=== PATIENT | female | born 1980 | race Caucasian/White ===

== ENCOUNTER 2017-01-08 15:56 | Emergency (ER) | payer OTHER ==
[2017-01-08 16:05] VITALS: BP 144/86
--- NOTE | 2017-01-08 16:12 | UC ---
Dizzy HPI HPI Summary: 36 YEAR OLD FEMALE WITH GRAVES DISEASE PRESENTS WITH COMPLAINS OF NAUSEA, DIZZINESS, AND TACHYCARDIA. I WILL SEND HER TO THE ER. - History Of Current Complaint Chief Complaint: UCGeneralIllness Stated Complaint: DIZZINESS,WEAKNESS Time Seen by Provider: 01/08/17 16:08 Hx Last Menstrual Period: NOW - Allergies/Home Medications Allergies/Adverse Reactions: Allergies Allergy/AdvReac Type Severity Reaction Status Date / Time Sulfa Antibiotics Allergy Severe FLUSHED, Verified 01/08/17 16:05 NAUSEA, SHAKING Home Medications: Home Medications ALPRAZolam TAB* [Xanax TAB*] 0.5 mg PO PRN 01/08/17 [History] FLUoxetine CAP* [PROzac CAP*] 40 mg PO DAILY 01/08/17 [History Confirmed ] Levothyroxine TAB* [Synthroid TAB*] 200 mcg PO DAILY 01/08/17 [History Confirmed 01/08/17] Nortriptyline CAP* [Pamelor CAP*] 10 mg PO TID 01/08/17 [History Confirmed 01/08] Oxybutynin TAB* [Ditropan TAB*] PRN 01/08/17 [History Confirmed 01/08/17] PMH/Surg Hx/FS Hx/Imm Hx - Surgical History Surgical History: Yes Surgery Procedure, Year, and Place: CHOLECYSTECTOMY - Social History Alcohol Use: None Substance Use Type: None Smoking Status (MU): Current Every Day Smoker Type: Cigarettes Amount Used/How Often: 1/2 PPD Review of Systems Constitutional: Negative Skin: Negative Eyes: Negative ENT: Negative Respiratory: Negative Cardiovascular: Negative Gastrointestinal: Negative Genitourinary: Negative Motor: Negative Neurovascular: Negative Musculoskeletal: Negative Neurological: Headache, Weakness, Other - DIZZINESS Psychological: Negative All Other Systems Reviewed And Are Negative: Yes Physical Exam Triage Information Reviewed: Yes Vital Signs: Initial Vital Signs Temp 37.3 C 01/08/17 16:01 Pulse 106 01/08/17 16:01 Resp 16 01/08/17 16:01 BP 144/86 01/08/17 16:01 Pulse Ox 100 01/08/17 16:01 Eye Exam: Normal ENT Exam: Normal Dental Exam: Normal Neck exam: Normal Neck: Positive: 1 Respiratory Exam: Normal Cardiovascular Exam: Normal Abdominal Exam: Normal Musculoskeletal Exam: Normal Psychological Exam: Normal Skin Exam: Normal Dizzy Course/Dx - Differential Dx/Diagnosis Provider Diagnoses: dizziness. fever. chills. fatigue Discharge - Discharge Plan Condition: Stable Disposition: AGAINST MEDICAL ADVICE Patient Education Materials: Lightheadedness (ED), Dizziness (ED), Graves Disease (ED), Tachycardia (ED) Referrals: No Primary Care Phys,NOPCP [Primary Care Provider] -
== END 2017-01-08 16:15 | disposition left against medical advice (07) ==
LOC: UCEAST 15:56
DX: R42 Dizziness and giddiness (principal); R50.9 Fever, unspecified; R53.83 Other fatigue; E05.00 Thyrotoxicosis with diffuse goiter without thyrotoxic crisis or storm; Z72.0 Tobacco use
CPT/HCPCS: 99201; G0463

== ENCOUNTER 2017-01-08 19:12 | Emergency (ER) | payer OTHER ==
[2017-01-08 22:22] LABS: Hematocrit 43 % (35-47); Hemoglobin 14.4 g/dl (12.0-16.0); Mean Corpuscular HGB Conc 33 g/dl (31-36); Mean Corpuscular Hemoglobin 30 pg (27-31); Mean Corpuscular Volume 90 fL (80-97); Mean Platelet Volume 8 um3 (7.4-10.4); Red Blood Count 4.83 10^6/ul (4.0-5.4); Red Cell Distribution Width 14 % (10.5-15); White Blood Count 14.1 10^3/ul (3.5-10.8)
[2017-01-08 22:38] LABS: BUN/Creatinine Ratio 11.1 (8-20); Calcium 9.4 mg/dL (8.6-10.3); EGFR African American 104.1 (>60); EGFR Non-African American 80.9 (>60); Globulin 2.9 g/dL (2-4); Total Bilirubin 0.5 mg/dL (0.2-1.0); Total Protein 6.9 g/dL (6.4-8.9)
[2017-01-08 22:49] LABS: TSH (Thyroid Stimulating Horm) 10.54 mcIU/mL (0.34-5.60)
--- NOTE | 2017-01-08 23:02 | ED ---
I, Oh,Jackie, scribed for Juan Roberts MD on 01/08/17 at 2113 . Dizziness - HPI Summary HPI Summary: This 36 y/o female presents to ED for lightheaded dizziness since 2-3 days ago. Positive general weakness and subjective fever. Negative n/v. APAP and advil did not make symptoms better. PMHx includes Graves disease, anxiety, and depression. Pt also reports that she is "pretty diabetic" but has not been prescribed any insulin or pills to control it. Pt does not have primary care established. Pt attempted to make appointment with [facility] today before coming to ED. Pt does have pending appointment at [facility] tomorrow morning. - History Of Current Complaint Chief Complaint: EDDizziness Stated Complaint: DIZZINESS,WEAKNESS-SENT FROM [facility] Time Seen by Provider: 01/08/17 21:05 Hx Obtained From: Patient Timing: Constant Character: Lightheaded Aggravating Factor(s): Nothing Alleviating Factor(s): Nothing Associated Signs And Symptoms: Positive: Fever - subjective fever - Allergies/Home Medications Allergies/Adverse Reactions: Allergies Allergy/AdvReac Type Severity Reaction Status Date / Time Sulfa Antibiotics Allergy Severe FLUSHED, Verified 01/08/17 16:05 NAUSEA, SHAKING PMH/Surg Hx/FS Hx/Imm Hx Endocrine/Hematology History: Reports: Hx Thyroid Disease - GRAVE'S DISEASE - Surgical History Surgery Procedure, Year, and Place: CHOLECYSTECTOMY Infectious Disease History: No Infectious Disease History: Denies: Traveled Outside the [place] in Last 30 Days - Family History Known Family History: Positive: Diabetes - to mother - Social History Alcohol Use: None Substance Use Type: Reports: None Smoking Status (MU): Current Every Day Smoker Type: Cigarettes Amount Used/How Often: 1/2 PPD Review of Systems Positive: Fever - subjective fever. Afebrile at triage Neurological: Other - Positive lightheaded dizziness Positive: Weakness - general All Other Systems Reviewed And Are Negative: Yes Physical Exam Triage Information Reviewed: Yes Vital Signs On Initial Exam: Initial Vitals Temp Pulse Resp BP Pulse Ox 98.8 F 118 16 135/92 97 01/08/17 19:16 01/08/17 19:16 01/08/17 19:16 01/08/17 19:16 01/08/17 19:16 Vital Signs Reviewed: Yes Appearance: Positive: Well-Appearing, No Pain Distress Skin: Positive: Warm Head/Face: Positive: Normal Head/Face Inspection Eyes: Positive: EOMI, [place] ENT: Positive: Hearing grossly normal Neck: Positive: Supple, Nontender Respiratory/Lung Sounds: Positive: Clear to Auscultation, Breath Sounds Present Cardiovascular: Positive: RRR Abdomen Description: Positive: Nontender, Soft Bowel Sounds: Positive: Present Musculoskeletal: Positive: Strength/ROM Intact Neurological: Positive: Alert, Oriented to Person Place, Time Psychiatric: Positive: Affect/Mood Appropriate Diagnostics - Vital Signs Vital Signs Temp Pulse Resp BP Pulse Ox 01/08/17 19:16 98.8 F 118 16 135/92 97 - Laboratory Lab Results: Lab Results 01/08/17 01/08/17 Range/Units 21:30 21:30 WBC 14.1 H (3.5-10.8) 10^3/ul RBC 4.83 (4.0-5.4) 10^6/ul Hgb 14.4 (12.0-16.0) g/dl Hct 43 (35-47) % MCV 90 (80-97) fL MCH 30 (27-31) pg MCHC 33 (31-36) g/dl RDW 14 (10.5-15) % Plt Count 316 (150-450) 10^3/ul MPV 8 (7.4-10.4) um3 Neut % (Auto) 61.4 (38-83) % Lymph % (Auto) 29.1 (25-47) % [place] % (Auto) 7.8 (1-9) % Eos % (Auto) 1.1 (0-6) % Baso % (Auto) 0.6 (0-2) % Absolute Neuts (auto) 8.7 H (1.5-7.7) 10^3/ul Absolute Lymphs (auto) 4.1 (1.0-4.8) 10^3/ul Absolute Monos (auto) 1.1 H (0-0.8) 10^3/ul Absolute Eos (auto) 0.2 (0-0.6) 10^3/ul Absolute Basos (auto) 0.1 (0-0.2) 10^3/ul Absolute Nucleated RBC 0.01 10^3/ul Nucleated RBC % 0.1 Sodium 136 (133-145) mmol/L Potassium 4.0 (3.5-5.0) mmol/L Chloride 102 (101-111) mmol/L Carbon Dioxide 27 (22-32) mmol/L Anion Gap 7 (2-11) mmol/L BUN 9 (6-24) mg/dL Creatinine 0.81 (0.51-0.95) mg/dL Est GFR ( Amer) 104.1 (>60) Est GFR (Non-Af Amer) 80.9 (>60) BUN/Creatinine Ratio 11.1 (8-20) Glucose 88 (70-100) mg/dL Calcium 9.4 (8.6-10.3) mg/dL Total Bilirubin 0.50 (0.2-1.0) mg/dL AST 13 (13-39) U/L ALT 14 (7-52) U/L Alkaline Phosphatase 61 (34-104) U/L Total Protein 6.9 (6.4-8.9) g/dL Albumin 4.0 (3.2-5.2) g/dL Globulin 2.9 (2-4) g/dL Albumin/Globulin Ratio 1.4 (1-3) TSH 10.54 H (0.34-5.60) mcIU/mL Result Diagrams: 01/08/17 21:30 01/08/17 21:30 Lab Statement: Any lab studies that have been ordered have been reviewed, and results considered in the medical decision making process. Re-Evaluation - Re-Evaluation First Eval Comment: results d/w pt Dizzy Course/Dx - Diagnoses Provider Diagnoses: Dizziness Discharge - Discharge Plan Condition: Stable Disposition: HOME Patient Education Materials: Dizziness (ED) Forms: *Work Release Referrals: [facility]FERRAL [Outside] - 2 Days The documentation as recorded by the Oracio jacobson Soohyun accurately reflects the service I personally performed and the decisions made by , Juan Roberts MD.
[2017-01-08 23:20] VITALS: BP 111/80
== END 2017-01-08 23:26 | disposition home or self-care (01) ==
LOC: ED 19:12
DX: R42 Dizziness and giddiness (principal); R53.1 Weakness; R50.9 Fever, unspecified; E05.00 Thyrotoxicosis with diffuse goiter without thyrotoxic crisis or storm; Z90.49 Acquired absence of other specified parts of digestive tract; Z88.2 Allergy status to sulfonamides; F17.210 Nicotine dependence, cigarettes, uncomplicated
CPT/HCPCS: 36415; 80053; 84443; 85025; 99282

== ENCOUNTER 2018-04-19 12:17 | Emergency (ER) | payer OTHER ==
[2018-04-19] MEDS ORDERED: Tetan/Diph/Pertus SYR(Tdap)* 0.5 ML SYR(BOOSTRIX) use SYR IM ONE (12:43)
[2018-04-19 12:48] VITALS: BP 134/85
--- NOTE | 2018-04-19 12:56 | ED ---
Bite Injury/Animal - HPI Summary HPI Summary: Patient presents with tick attached to her lower left abdomen. She is not sure how long suspension here however she noticed it today when she was scratching her abdomen. She denies pain. She admits she's outside daily and has animals' s was not sure where she attained this tach. Tetanus is not up-to-date and she would like to use that today. Otherwise no complaints. - History of Current Complaint Chief Complaint: EDAnimalBite Stated Complaint: POSS TICK BITE Time Seen by Provider: 04/19/18 12:29 Hx Obtained From: Patient, Family/Certified Alcohol Drug Counselor - 2 male companions Hx Last Menstrual Period: NOW Pain Intensity: 0 - Allergies/Home Medications Allergies/Adverse Reactions: Allergies Allergy/AdvReac Type Severity Reaction Status Date / Time MS Sulfa Antibiotics Allergy Severe FLUSHED, Verified 01/08/17 16:05 [Sulfa Antibiotics] NAUSEA, SHAKING PMH/Surg Hx/FS Hx/Imm Hx Previously Healthy: Yes Endocrine/Hematology History: Reports: Hx Diabetes - "prediabetic", Hx Thyroid Disease - GRAVE'S DISEASE Denies: Hx Anticoagulant Therapy, Hx Blood Disorders Sensory History: Reports: Hx Contacts or Glasses Opthamlomology History: Reports: Hx Contacts or Glasses - Surgical History Surgery Procedure, Year, and Place: CHOLECYSTECTOMY - Immunization History Immunizations Up to Date: No - needs tetanus Infectious Disease History: No Infectious Disease History: Denies: Traveled Outside the [place] in Last 30 Days - Family History Known Family History: Positive: Diabetes - to mother - Social History Occupation: Employed Full-time - executive sales manager Lives: With Family Alcohol Use: None Hx Substance Use: No Substance Use Type: Reports: None Hx Tobacco Use: Yes Smoking Status (MU): Current Every Day Smoker Type: Cigarettes Amount Used/How Often: <1PPD Review of Systems Constitutional: Negative Negative: Fever, Chills Skin: Other - tick attached to ab - no EM rash Neurological: Negative Positive: Anxious All Other Systems Reviewed And Are Negative: Yes Physical Exam Triage Information Reviewed: Yes Vital Signs On Initial Exam: Initial Vitals Temp Pulse Resp BP Pulse Ox 98.6 F 91 19 134/85 97 04/19/18 12:23 04/19/18 12:23 04/19/18 12:23 04/19/18 12:23 04/19/18 12:23 Vital Signs Reviewed: Yes Appearance: Positive: Well-Appearing, No Pain Distress, Well-Nourished Skin: Positive: Warm, Skin Color Reflects Adequate Perfusion, Dry - large, pale tick attached to ab - moving - not engorged; surrounding ecchymosis appears to be healing (yellowish) - no EM rash Head/Face: Positive: Normal Head/Face Inspection Eyes: Positive: EOMI ENT: Positive: Hearing grossly normal Respiratory/Lung Sounds: Positive: Breath Sounds Present Musculoskeletal: Positive: Normal, Strength/ROM Intact Neurological: Positive: Normal, Sensory/Motor Intact, Alert, Oriented to Person Place, Time, CN Intact II-III Psychiatric: Positive: Anxious - but pleasant and cooperative Procedures - Procedure Summary Procedure Summary: tick removed with tick puller successfully and completely - no blood upon rupture - to tolerated well - cleaned w/ alcohol and dressed w/ bandaid Diagnostics - Vital Signs Vital Signs Temp Pulse Resp BP Pulse Ox 04/19/18 12:23 98.6 F 91 19 134/85 97 - Laboratory Lab Statement: Any lab studies that have been ordered have been reviewed, and results considered in the medical decision making process. Bite Injury Course/Dx - Diagnoses Provider Diagnosis: Tick bite of abdomen Discharge - Sign-Out/Discharge Documenting (check all that apply): Patient Departure - Discharge Plan Condition: Stable Disposition: HOME Patient Education Materials: Tick Bite (ED) Referrals: [facility] [Outside] Additional Instructions: Monitor for signs/symptoms of local infection as well as Lyme disease - see education for details. *If any further concerns regarding this bite, you may follow-up with [facility] - see information included here - Billing Disposition and Condition Condition: STABLE Disposition: Home
== END 2018-04-19 13:15 | disposition home or self-care (01) ==
LOC: ED 12:17
DX: S30.861A Insect bite (nonvenomous) of abdominal wall, initial encounter (principal); W57.XXXA Bitten or stung by nonvenomous insect and other nonvenomous arthropods, initial encounter; Y92.9 Unspecified place or not applicable; Z23 Encounter for immunization; E05.00 Thyrotoxicosis with diffuse goiter without thyrotoxic crisis or storm; R73.03 Prediabetes; Z88.2 Allergy status to sulfonamides; F17.210 Nicotine dependence, cigarettes, uncomplicated
CPT/HCPCS: 90471; 90715; 99282